=== PATIENT | female | born 1960 | race Caucasian/White ===

== ENCOUNTER 2023-08-25 07:27 | Observation (INO) ==
--- NOTE | 2023-08-08 15:52 | PAT Medication Instructions ---
Medication Instructions Date of Service August 08, 2023 Home Medications bupropion HCl 150 mg 24 hr tablet, extended release (Wellbutrin XL) 150 mg PO HS metoprolol tartrate 50 mg tablet (Lopressor) 50 mg PO BID triamterene 37.5 mg-hydrochlorothiazide 25 mg tablet (Maxzide-25mg) 1 tab PO QAM atorvastatin 40 mg tablet 40 mg PO HS acetaminophen 500 mg tablet (Pain Reliever (acetaminophen)) 1,000 mg PO Q8H PRN pantoprazole 40 mg tablet,delayed release 40 mg PO QAM DO NOT take the morning of surgery triamterene 37.5 mg-hydrochlorothiazide 25 mg tablet (Maxzide-25mg) 1 tab PO QAM Take morning of surgery With a small sip of water, OTHERWISE NOTHING TO EAT OR DRINK AFTER MIDNIGHT: metoprolol tartrate 50 mg tablet (Lopressor) 50 mg PO BID acetaminophen 500 mg tablet (Pain Reliever (acetaminophen)) 1,000 mg PO Q8H PRN (if needed) pantoprazole 40 mg tablet,delayed release 40 mg PO QAM Take evening before surgery bupropion HCl 150 mg 24 hr tablet, extended release (Wellbutrin XL) 150 mg PO HS metoprolol tartrate 50 mg tablet (Lopressor) 50 mg PO BID atorvastatin 40 mg tablet 40 mg PO HS acetaminophen 500 mg tablet (Pain Reliever (acetaminophen)) 1,000 mg PO Q8H PRN (if needed) Other Notes If you have any questions please call us at [phone] or [phone] or [phone] or [phone]
--- NOTE | 2023-08-17 09:09 | Anesthesiology Consultation ---
Date of Service August 17, 2023 Assessment & Plan (1) Encounter for pre-operative examination: - Infectious disease screening: Per assessment on 08/17/23: No known infectious disease contacts or current infectious disease symptoms. No noted Covid positive test result in past 90 days. - Outpatient joint assessment: Pt currently scheduled for inpatient pathway. If surgeon requests review for outpatient joint pathway, patient is an acceptable candidate for outpatient joint program from anesthesia standpoint pending surgeon's office assessment that patient is motivated, has good support and completes [facility] preop requirements. - S/P Right uni-knee arthroplasty (09/22/18): SAB at L3/4 + PNB at [facility] Chart Review Chart Review: Acceptable Risk for Surgery and Patient NOT seen in Pre Admission Testing History Surgery Operation Date: 08/25/23 09:10 Proposed Procedures p Left Total Knee Arthroplasty - Jimmy Finch MD Height/Weight Height: 5 ft 1 in Weight: 73.2 kg Allergies Allergy/AdvReac Type Severity Reaction Status Date / Time No Known Allergies Allergy Verified 08/05/23 14:31 Medications Home Medications Medication Instructions Recorded Confirmed Last Taken bupropion HCl 150 mg 24 hr tablet, 150 mg PO HS 08/21/18 08/05/23 09/21/18 20:00 extended release (Wellbutrin XL) metoprolol tartrate 50 mg tablet 50 mg PO BID 08/21/18 08/05/23 09/22/18 07:00 (Lopressor) triamterene 37.5 1 tab PO QAM 08/21/18 08/05/23 09/21/18 09:00 mg-hydrochlorothiazide 25 mg tablet (Maxzide-25mg) atorvastatin 40 mg tablet 40 mg PO HS 08/28/18 08/05/23 09/21/18 20:00 acetaminophen 500 mg tablet (Pain 1,000 mg PO Q8H PRN Pain 10/13/21 08/05/23 Unknown Reliever (acetaminophen)) pantoprazole 40 mg tablet,delayed 40 mg PO QAM 10/13/21 08/05/23 Unknown release Past Medical History Medical History Migraine Hx History of COVID-2019, not hospitalized Osteoarthritis High cholesterol Anxiety GERD (gastroesophageal reflux disease) Hypertension Exercise / Class Metabolic Activity II 4-5 Yardwork/Stairs/Walk up hill (one FS (no CP, no SOB)) Past Family History Family History Mother Family history of thyroid problem Past Surgical History Surgical History History of partial knee replacement Right uni-knee arthroplasty (09/22/18): SAB at L3/4 + PNB at [facility] History of cataract surgery R/L History of breast biopsy left History of tubal ligation History of meniscectomy of left knee Past Anesthesia History No Hx of Anesthesia Complications and No Family Hx of Anesthesia Complications History of PONV No Hx of PONV and No Hx of Motion Sickness Social History Smoking Status: Former smoker Do You Dip or Chew Tobacco: No Smoking End Date: Quit 3 years Hx Alcohol Use: Yes Alcohol type: hard liquor alcohol intake frequency: holidays/special occasions only Hx Substance Use: No substance use type: does not use Review of Systems Patient denies chest pain, shortness of breath, dyspnea on exertion, fever, chills, cough, wheezing, palpitations. Physical Exam Vital Signs VITALS BP 110/70 P 69 TEMP 98.1 SP02 98%RA RESP 18 PHYSICAL Full cervical extension range of motion. Full TMJ range of motion. TMD 3 finger breaths Mallampati Score 2 Dentition: Right upper molars "broken" Lungs: clear throughout to auscultation Cardiac: regular rate and rhythm, no murmurs noted Spine: normal Carotid arteries: negative bruit Extremities: no LE edema Lab Results Anesthesia Preop Results Results Anesthesia Widget: WBC 7.29 K/ul (4.8-10.8) 08/17/23 Hgb 14.4 g/dl (12.0-16.0) 08/17/23 Hct 42.9 % (37.0-47.0) 08/17/23 Plt 307 K/uL (130-400) 08/17/23 Na 138 mmol/L (136-145) 08/17/23 K 3.8 mmol/L (3.5-5.1) 08/17/23 Cl 103 mmol/L (98-107) 08/17/23 CO2 25 mmol/L (21-32) 08/17/23 BUN 18 mg/dl (6-23) 08/17/23 Creat 0.97 mg/dl (0.6-1.2) 08/17/23 Glucose Level 95 mg/dl (70-99(Fasting)) 08/17/23 PT 10.7 Seconds (9.0-12.0) 08/17/23 PTT 29.0 Seconds (21.0-31.0) 08/17/23 INR 1.0 (0.9-1.1) 08/17/23 Urine Color Yellow 08/17/23 Urine Appearance Clear (Clear) 08/17/23 Urine pH 6.5 (4.5-7.5) 08/17/23 Urine Specific [place] 1.013 (1.000-1.030) 08/17/23 Urine Protein Negative (Negative) 08/17/23 Urine Glucose (UA) Negative (Negative) 08/17/23 Urine Ketones Negative (Negative) 08/17/23 Urine Blood Negative (Negative) 08/17/23 Urine Nitrite Negative (Negative) 08/17/23 Urine Bilirubin Negative (Negative) 08/17/23 Urine Urobilinogen Negative (Negative) 08/17/23 Urine Leukocyte Esterase Negative (Negative) 08/17/23 Blood Type A Positive 08/17/23 Antibody Screen NEGATIVE 08/17/23 Testing Electrocardiogram Date: 08/17/23 NSR at 65bpm. "Normal ECG" Chest X-Ray Date: 11/17/22 FINDINGS: No pneumothorax. No pleural effusions. No focal lung consolidations to suggest a pneumonia. The cardiac silhouette is top normal in size. There are old, healed left-sided rib fractures. Small linear scarlike density within the lingula. This is best seen on the lateral view. There is an old, healed left humeral neck fracture. IMPRESSION: No acute process. Pulmonary Function Test Date: 12/14/22 Mild proportional reduction in both FEV1 and FVC with preserved ratio. No change after bronchodilators. No assessment of restriction on lung volumes and diffusion capacity mildly reduced. Nonspecific clinical pattern.
[~2023-08-25 07:27] MED LIST: ACETAMINOPHEN 500 MG TAB PO SCH; BUPIVACAINE 0.5 % 5 MG/1 ML PF 10ML VIAL ONE; BUPIVACAINE LIPOSOME/PF 266 MG, BUPIVACAINE/EPINEPHRINE 50 ML, SODIUM CHLORIDE 0.9% PF ... INFIL SCH; CeleBREX 200 MG CAP PO SCH; FAMOTIDINE 20 MG TAB PO SCH; LR 500ML BOLUS, THEN 15ML/HR IV SCH; LR 60ML/HR IV SCH; ROPIVACAINE 0.5% 5 MG/ML 30 ML VIAL ONE; Scopolamine 1 MG TDSY TD SCH; TRANEXAMIC ACID 1,000 MG **IV Intra-op IV SCH; TRANEXAMIC ACID 1,000 MG **IV Pre-op IV SCH; ceFAZolin 2000MG 2,000 MG/15 ML SYR IV SCH; dexAMETHasone 4 MG TAB PO SCH; traMADol HCL 50 MG TABLET PO SCH
[2023-08-25] MEDS ORDERED: PROPOFOL IV EMULSION 10 MG/ML 20 ML VIAL IV ONE ×2 (09:24→12:21)
[2023-08-25] MEDS ORDERED: MIDAZOLAM HCL 1 MG/ML 2ML VIAL ONE (09:24)
--- NOTE | 2023-08-25 09:52 | History & Physical Bridge Note ---
Date of Service August 25, 2023 History & Physical Bridge Note I have examined the patient, reviewed the History & Physical and in the interval since the performance of the History & Physical I have noted the following changes of clinical significance: no changes noted
[2023-08-25] MEDS ORDERED: ROPIVACAINE 0.5% HCL/PF 150 MG, BUPIVACAINE 0.75% MPF 20 ML, EPINEPHrine 0.15 MG, Ketor... INFIL SCH (10:45)
--- NOTE | 2023-08-25 12:29 | Operative Report ---
Post Operative Report Pre & Post Diagnosis Operation Date: 08/25/23 09:20 Pre-Op Diagnosis: Left Knee Degenerative Joint Disease Post-Op Diagnosis: Left Knee Degenerative Joint Disease I identified the patient and participated in the time-out.: Yes Procedure Operation Date: 08/25/23 09:20 Actual Procedures p Left Total Knee Arthroplasty(Left) - Jimmy Finch MD Surgeon Jimmy Finch MD [employer] Ulices Rosario MD, MICHAELLE Noland PA-C, and Arley Vargas MS2. Estimated Blood Loss 100 Findings Consistent with Post-Op Diagnosis Fluids 1100 cc of crystalloid Specimens Left knee bone and soft tissue contents. Anesthesia Type Spinal MAC Complications none Disposition Disposition: Recovery Room Indications 63-year-old female with left knee osteoarthritis refractory to conservative management. X-rays demonstrate joint space narrowing, marginal osteophyte formation, and subchondral sclerosis. I had a long discussion with her about the risks and benefits of surgery, alternatives to surgery, and expected outcomes. After reviewing all these she elected to proceed with surgery. All questions were answered. Informed consent was signed. Description of Procedure Patient was identified in the preoperative holding area where the surgical site, left knee, was marked. Spinal anesthetic was placed by anesthesia. Patient was brought back to the operating room, placed on the operating room table, and IV sedation was administered. A bump was placed underneath the ipsilateral hip. All bony prominences were padded. Perioperative antibiotics and tranexamic acid were administered. Exam under anesthesia was performed. This demonstrated patient to have range of motion arc from 5 to 100 degrees. She was stable to varus and valgus at 30 degrees. The surgical site was prepped and draped in the normal sterile fashion. Prior to incision a multidisciplinary timeout was called. All in the room were in agreement. We began by exsanguinating the limb with an Esmarch bandage. Tourniquet was inflated to 250 mmHg. A 14 cm long incision was made over the anterior aspect of the knee. I dissected through the subcutaneous tissues to the level of the fascia. Full-thickness flaps were raised above the fascia. A median parapatellar arthrotomy was made. Half the fat pad was excised. A medial release was performed with Bovie electrocautery on the proximal tibia. Synovitis in the knee and suprapatellar pouch was removed. The patella was then everted and held with 2 towel clips. The thickness of the patella was measured at 20 mm. Patellar resection was performed. Caliper showed the patella thickness now to be 12 mm. A size 35 trial was placed and had a great fit. The 3 drill holes were placed then the trial button was placed. The patellar thickness was now 21 mm which I was very happy with. The patellar trial was then removed, and the knee was flexed up. Retractors were placed to protect the MCL and LCL. Osteophytes were removed from the femoral condyles and intercondylar notch. The ACL and PCL were excised. Intramedullary drill guide was drilled into the femur. Distal femoral cutting guide was placed set at 5 degrees of valgus to resect 11 mm off the distal femur. Distal femoral resection was made without difficulty. The tibia was then exposed. The lateral meniscus was sharply excised. The tibial cutting jig was positioned in line with the tibial shaft in the coronal plane and with 3 degrees of posterior slope in the sagittal plane to resect 5 mm off the medial compartment. The jig was then pinned in position and the tibial cut was made. We then brought the knee into full extension. Lamina spreaders were placed. The medial meniscus was excised. The extension block was then placed for 5 mm thickness poly. This gave us full extension and excellent stability to varus and valgus stress. Next the extension block was removed, the knee was flexed up, collateral ligam ents were protected, and the epicondylar axis and Whitesides line were marked out on the distal femoral cut. Femoral sizing guide was placed. External rotation was set at 3 degrees so that the posterior cut would be parallel with the epicondylar axis and perpendicular with Whitesides line. The patient sized to a size 4 femur. 2 pins were then placed through the jig into the distal femur. The jig was removed and the appropriately sized 4-in-1 cutting jig was placed over the pins, then fixated to the bone using threaded, headed pins. We confirmed that we would not notch the femur with our anterior cut. Our 4 cuts were then made. The cutting jig was removed. The flexion block was then placed with the knee held at 90 degrees. There was excellent stability to varus and valgus at 90 degrees with no gapping medially or laterally. Next the box cutting jig was placed on the distal femur. The box cut was made and the femoral trial was impacted into position. Lug holes were drilled in the distal femur. We then reexposed the tibia. The tibia was sized to a 3 for a fixed-bearing component. The tibial tray with a 5 mm thickness polyethylene liner was placed on the cut tibial surface and the knee was brought through a full range of motion. There was excellent stability to varus valgus stress throughout a full range of motion, which was approximately 0-125 degrees. Bovie electrocautery was used to brannon the tibia at the site where the tibial tray rested in full extension. We then flexed up the knee, removed the polyethylene liner, and pinned the tibial tray into position to match the cautery brannon. The intramedullary drill followed by the keel punch were used to prepare the tibia. Next the trial components were removed. I then injected the posterior capsule and periosteum with the periarticular injection cocktail. The bone cuts were then irrigated and dried while the cement was mixed on the back table. The femoral component was cemented on first. Excess cement was removed. A lap sponge was placed over the femoral component for protection, then the tibia was subluxated anteriorly. The all polyethylene tibial component was then cemented in place. Again excess cement was removed. The knee was brought into full extension and held there until the cement cured. The patella was cemented and clamped. Dilute Betadine solution was then allowed to soak in the knee while the cement cured. Once the cement was fully cured, the knee was irrigated out, the tourniquet was let down and meticulous hemostasis was ensured. The knee was brought through a full range of motion. I was were very happy with the patella tracking and the stability. We then began to close. Interrupted 0 Vicryl suture was used to repair the patellar retinaculum in [id number] fashion. The quadriceps and patellar tendons were run with #1 Vicryl. The deep dermal layer was closed with interrupted 2-0 Vicryl. Dermabond and Zipline was used for the skin, followed by a Silverlon dressing. A compressive Jamie wrap was placed and the knee was placed into a knee immobilizer. Patient's sedation was lifted and was transferred to recovery room in stable condition. Summary of implants: Depuy Attune Posterior Stabilized Cemented Femur, size 4 left Attune All-polyethylene tibial component, posterior stabilized 5 mm thickness, size 3 Attune patella medialized dome, size 35 2 batches of simplex high viscosity bone cement Postoperative course: Patient will be admitted to the floor for pain control and monitoring. Weightbearing as tolerated with a walker with no knee range of motion for 48 hours. Aspirin for DVT prophylaxis. I attest to the content of the Intraoperative Record and any orders documented therein. Any exceptions are noted below.
[2023-08-25] MEDS ORDERED: HYDROmorphone INJ 0.5 MG/0.5 ML SYR IV PRN (12:34)
[2023-08-25] MEDS ORDERED: bisacodyL 10 MG SUPP PR PRN (12:34)
[2023-08-25] MEDS ORDERED: NALOXONE HCL 0.4 MG/1 ML VIAL/CARP IV PRN (12:34)
[2023-08-25] MEDS ORDERED: ALUMINUM/MAGNESIUM SUSP 30 ML UDC PO PRN (12:34)
[2023-08-25] MEDS ORDERED: diphenhydrAMINE 50 MG/ML VIAL IV PRN (12:34)
[2023-08-25] MEDS ORDERED: oxyCODONE HCL IR 5 MG TAB (IMMEDIATE RELEASE) PO PRN (12:34)
[2023-08-25] MEDS ORDERED: ONDANSETRON INJ 2 MG/ML 2 ML VIAL IV PRN (12:34)
[2023-08-25] MEDS ORDERED: METOCLOPRAMIDE HCL INJ 5 MG/ML 2 ML VIAL IV PRN (12:34)
[2023-08-25] MEDS ORDERED: MAGNESIUM HYDROXIDE SUSP 30 ML UDC PO PRN (12:34)
--- NOTE | 2023-08-25 12:34 | Operative Report ---
Post Operative Report Pre & Post Diagnosis Operation Date: 08/25/23 09:20 Pre-Op Diagnosis: Left Knee Degenerative Joint Disease Post-Op Diagnosis: Left Knee Degenerative Joint Disease I identified the patient and participated in the time-out.: Yes Procedure Operation Date: 08/25/23 09:20 Actual Procedures p Left Total Knee Arthroplasty(Left) - Jimmy Finch MD Surgeon Jimmy Finch MD Way Inspector Ulices Rosario MD, MICHAELLE Noland PA-C, and Arley Vargas MS2. Estimated Blood Loss 100 Findings Consistent with Post-Op Diagnosis Specimens knee bone and soft tissue Description of Procedure I was present during the entire case assisting with positioning, prepping, draping, wound retraction, wound closure, dressing and immobilizer placement. Fellow also present. I served as an extra set of hands during the case. Please see Dr. Finch procedure note for specifics. I attest to the content of the Intraoperative Record and any orders documented therein. Any exceptions are noted below.
[2023-08-25] MEDS ORDERED: ACETAMINOPHEN 500 MG TAB PO PRN (12:38)
--- NOTE | 2023-08-25 12:52 | Operative Report ---
Post Operative Report Pre & Post Diagnosis Operation Date: 08/25/23 09:20 Pre-Op Diagnosis: Left Knee Degenerative Joint Disease Post-Op Diagnosis: Left Knee Degenerative Joint Disease I identified the patient and participated in the time-out.: Yes Procedure Operation Date: 08/25/23 09:20 Actual Procedures p Left Total Knee Arthroplasty(Left) - Jimmy Finch MD Surgeon Jimmy Finch MD Global Safety Officer Ulices Rosario MD, MICHAELLE Noland PA-C, and Arley Vargas MS2. Estimated Blood Loss 100 Findings Consistent with Post-Op Diagnosis Same as postoperative diagnosis. Specimens None Description of Procedure Please see detailed operative note. I attest to the content of the Intraoperative Record and any orders documented therein. Any exceptions are noted below.
--- NOTE | 2023-08-25 13:22 | XRay Report ---
XR knee LT 1 or 2V routine CLINICAL HISTORY: Postoperative evaluation. COMPARISON: Left knee radiographs August 17, 2023. FINDINGS: Alignment of the total left knee arthroplasty is anatomic. There is no periprosthetic frac ture or unexpected radiopaque foreign body. Polyethylene tibial component is present. IMPRESSION: Expected findings following total left knee arthroplasty. ACT 112: Negative or not required by law. Electronically signed by: Martin Zamarripa M.D. 08/25/2023 1:21 PM
[2023-08-25] MEDS: SODIUM CHLORIDE 0.9% 1,000 ML IV SCH (14:26)
--- NOTE | 2023-08-25 14:35 | Anesthesiology Progress Note ---
Date of Service August 25, 2023 Anesthesia Post Procedure Vital Signs Vital Signs: Temp Pulse Resp BP Pulse Ox O2 Del Method O2 Flow Rate 08/25/23 14:30 36.8 C 85 16 100/64 98 Room Air 08/25/23 13:58 36.6 C 81 16 107/69 98 Room Air 08/25/23 13:30 36.4 C L 77 20 113/56 L 97 Room Air 08/25/23 13:20 79 20 106/59 L 98 Room Air 08/25/23 13:10 36.2 C L 75 22 112/59 L 98 Room Air 08/25/23 13:00 67 18 103/48 L 97 Room Air 08/25/23 12:50 74 15 114/46 L 97 Room Air 08/25/23 12:40 71 14 95/51 L 100 Room Air 08/25/23 12:32 36.5 C 74 20 93/54 L 100 Oxymask 6 08/25/23 08:36 37.1 C 71 20 123/74 98 Room Air Transfer of Care Handoff Completed per policy Notes Mental Status: alert / awake / arousable and participated in evaluation Nausea / Vomiting: adequately controlled Pain: adequately controlled Airway Patency, RR, SpO2: stable & adequate BP & HR: stable & adequate Hydration State: stable & adequate Neuraxial Anesthesia: was administered and sensory block is resolving Anesthetic Complications: no major complications apparent and Pt Satisfied with anesthetic care
[2023-08-25] MEDS: ACETAMINOPHEN 500 MG TAB PO SCH ×2 (16:25→20:58)
[2023-08-25] MEDS: Scopolamine CHECK PATCH PLACEMENT SCH (16:26)
[2023-08-25] MEDS: KETOROLAC TROMETHAMINE 15 MG/ML VIAL IV SCH ×2 (16:26→20:58)
[2023-08-25] MEDS: ceFAZolin 2000MG 2,000 MG/15 ML SYR IV SCH (18:18)
[2023-08-25] MEDS ORDERED: TRANEXAMIC ACID / 0.7% NACL 1,000 MG/100 ML BAG IV SCH (19:00)
[2023-08-25] MEDS: METOPROLOL TARTRATE 50 MG TAB PO SCH (20:54)
[2023-08-25] MEDS: DOCUSATE SODIUM 100 MG CAP PO SCH (20:54)
[2023-08-25] MEDS ORDERED: buPROPion XL 150 MG TABCR PO SCH (21:00)
[2023-08-25] MEDS ORDERED: ATORVASTATIN 40 MG TAB PO SCH (21:00)
[2023-08-25] MEDS ORDERED: SENNA 8.6 MG TAB PO SCH (21:00)
[2023-08-25] MEDS ORDERED: CeleBREX 200 MG CAP PO SCH (21:00)
[2023-08-26] MEDS: KETOROLAC TROMETHAMINE 15 MG/ML VIAL IV SCH ×2 (02:45→08:44)
[2023-08-26] MEDS: ceFAZolin 2000MG 2,000 MG/15 ML SYR IV SCH (02:46)
[2023-08-26] MEDS: Scopolamine CHECK PATCH PLACEMENT SCH ×2 (02:46→08:46)
[2023-08-26] MEDS: SODIUM CHLORIDE 0.9% 1,000 ML IV SCH (05:36)
[2023-08-26] MEDS: ACETAMINOPHEN 500 MG TAB PO SCH (06:04)
[2023-08-26] MEDS ORDERED: dexAMETHasone 4 MG TAB PO SCH (08:00)
[2023-08-26 08:13] LABS: Hematocrit (blood only) 34.1 % (37.0-47.0); Hemoglobin 11.4 g/dl (12.0-16.0); Mean Corpuscular Hemoglobin 29.8 pg (25.0-34.0); Mean Corpuscular Hgb Conc 33.4 g/dL (32.0-36.0); Mean Corpuscular Volume 89.3 fL (80.0-100.0); Mean Platelet Volume 9.6 fL (9.4-12.4); Platelet Count 257 K/uL (130-400); RDW Coefficient of Variation 12.9 % (11.5-14.5); RDW Standard Deviation 42.1 fL (36.4-46.3); Red Blood Count 3.82 M/uL (4.20-5.40); White Blood Count 17.14 K/ul (4.8-10.8)
[2023-08-26 08:32] LABS: BUN Creatinine Ratio 13.9 (10-20); Calcium 8.4 mg/dl (8.6-10.3); Creatinine Clr Calc Pharmacy 33.9 ml/min; Est GFR (African American) 40.2 ml/min; Est GFR (Non-African American) 34.7 ml/min; Potassium 3.4 mmol/L (3.5-5.1)
[2023-08-26] MEDS: METOPROLOL TARTRATE 50 MG TAB PO SCH (08:43)
[2023-08-26] MEDS: DOCUSATE SODIUM 100 MG CAP PO SCH (08:44)
--- NOTE | 2023-08-26 08:48 | Orthopedic Progress Note ---
Date of Service August 26, 2023 Assessment & Plan (1) Status post total left knee replacement: Plan: PT/OT Weightbearing as tolerated with walker assistance and immobilizer for the first 48 hours Pain control with p.o. medication Ice with easy wrap DVT prophylaxis with aspirin and DAVID stockings Keep Silverlon dressing in place Plan is to discharge home later this morning with in-home physical therapy for the first 2 weeks Follow-up at [facility] orthopedics as previously scheduled With questions contact our clinic at [phone] Admission and Anticipated Discharge Date Admission Date: August 25, 2023 Subjective This 63-year-old female is day 1 status post left total knee arthroplasty. She states she is doing very well. She states her pain is well controlled with p.o. pain medication. Patient states that she still has some numb sensation over the dorsum of the foot and anterior aspect of her lower leg but has complete motor function. She states she has been able to get up and use the restroom with the assistance of her walker. Patient denies chest pain, shortness of breath, fever, chills, sweats, lethargy, nausea, vomiting, diarrhea or difficulty voiding. Review of Systems Review of Systems: All systems reviewed & are unremarkable except as noted in Subjective Physical Exam Physical Exam: Left knee: Outer dressing was removed. Silverlon is clean dry and intact and left in place. Patient does have some mild edema and ecchymosis noted over the medial and lateral aspect of the knee. She is able to to easily perform an active straight leg raise test. Her quad strength is 4+ out of 5. She is able to actively dorsi and plantarflex her foot without issue. Active knee range of motion is from 0 degrees of extension to 80 degrees of flexion. She is able to detect light sensation to touch over the pads of all digits and dorsum of her foot. Her peripheral pulses are 2+. Her capillary was not able to be detected due to nail cymro. She is neurovascularly intact in the left lower extremity. Results & Data Vital Signs (Past 12 Hours) Vital Signs Temp Pulse Resp BP Pulse Ox O2 Del Method 08/26/23 07:34 36.6 C 67 18 117/70 99 Room Air 08/26/23 03:06 36.6 C 77 18 134/65 99 Room Air 08/25/23 23:00 36.7 C 90 18 117/70 95 Room Air Diagnostic Findings Laboratory Results WBC 17.14 K/ul (4.8-10.8) H 08/26/23 07:28 RBC 3.82 M/uL (4.20-5.40) L 08/26/23 07:28 Hgb 11.4 g/dl (12.0-16.0) L 08/26/23 07:28 Hct 34.1 % (37.0-47.0) L 08/26/23 07:28 MCV 89.3 fL (80.0-100.0) 08/26/23 07:28 MCH 29.8 pg (25.0-34.0) 08/26/23 07:28 MCHC 33.4 g/dL (32.0-36.0) 08/26/23 07:28 RDW Std Deviation 42.1 fL (36.4-46.3) 08/26/23 07:28 RDW Coeff of Shanta 12.9 % (11.5-14.5) 08/26/23 07:28 Plt Count 257 K/uL (130-400) 08/26/23 07:28 MPV 9.6 fL (9.4-12.4) 08/26/23 07:28 Sodium 137 mmol/L (136-145) 08/26/23 07:28 Potassium 3.4 mmol/L (3.5-5.1) L 08/26/23 07:28 Chloride 106 mmol/L (98-107) 08/26/23 07:28 Carbon Dioxide 21 mmol/L (21-32) 08/26/23 07:28 Anion Gap 10 (3-11) 08/26/23 07:28 BUN 22 mg/dl (6-23) 08/26/23 07:28 Creatinine 1.58 mg/dl (0.6-1.2) H 08/26/23 07:28 Est Cr Clr Drug Dosing 33.9 ml/min 08/26/23 07:28 Est GFR ( Amer) 40.2 ml/min 08/26/23 07:28 Est GFR (Non-Af Amer) 34.7 ml/min 08/26/23 07:28 BUN/Creatinine Ratio 13.9 (10-20) 08/26/23 07:28 Glucose 149 mg/dl (70-99(Fasting)) H 08/26/23 07:28 Calcium 8.4 mg/dl (8.6-10.3) L 08/26/23 07:28 Impressions Knee X-Ray 08/25/23 12:34 XR knee LT 1 or 2V routine CLINICAL HISTORY: Postoperative evaluation. COMPARISON: Left knee radiographs August 17, 2023. FINDINGS: Alignment of the total left knee arthroplasty is anatomic. There is no periprosthetic fracture or unexpected radiopaque foreign body. Polyethylene tibial component is present. IMPRESSION: Expected findings following total left knee arthroplasty. ACT 112: Negative or not required by law. Electronically signed by: Martin Zamarripa M.D. 08/25/2023 1:21 PM
--- NOTE | 2023-08-26 08:55 | Discharge Summary ---
Date of Service August 26, 2023 Admission HPI Per Admitting Provider Karina is a 61-year-old female here today for preoperative history and physical prior to undergoing a left total knee arthroplasty with Dr. Finch. She has had about 10 cortisone injections as well as DECKER injections. Patient has had severe pain in her left knee. She has had a partial right knee arthroplasty w [facility]OC and a history of neuropathy. Her left knee pain is located on the medial side that she describes as burning. Patient's pain radiates to the back of her knee and keeps her up at night. She takes Tramadol occasionally as well as IcyHot and Ibuprofen. Patient has significant swelling especially after activity. She had a meniscus surgery done on her left knee about 3 years ago. Patient has not recently had a cortisone injection. She has no history of blood clotting, MRSA, allergy to latex or rubber gloves and is not currently on any blood thinners. Admission Exam Per Admitting Provider Physical Exam Vitals & Measurements T: 36.4 C HR: 70 (Monitored) BP: 130/78 SpO2: 97% General: Pt is well nourished, seated on the exam table AA&O, in NAD, calm and cooperative during exam HENT: Nontraumatic, no gross deformity, hearing and vision grossly in-tact, PERRL Heart: +S1, +S2, RRR, no murmurs appreciated Lungs: CTABL, no wheezing appreciated Focusing on the patient's left lower extremity: Sensation intact to light touch L3 to S1 dermatomes. ROM: 2 to 110 + Medial > lateral joint line tenderness + Tenderness over lateral and medial facet of patella Ligament exam: - Posterior drawer Stable to Varus and Valgus stress at 0 and 30. Well healed arthroscopic portal incisions Principal Diagnosis Left knee osteoarthritis Discharge Exam Left knee: Outer dressing was removed. Silverlon is clean dry and intact and left in place. Patient does have some mild edema and ecchymosis noted over the medial and lateral aspect of the knee. She is able to to easily perform an active straight leg raise test. Her quad strength is 4+ out of 5. She is able to actively dorsi and plantarflex her foot without issue. Active knee range of motion is from 0 degrees of extension to 80 degrees of flexion. She is able to detect light sensation to touch over the pads of all digits and dorsum of her foot. Her peripheral pulses are 2+. Her capillary was not able to be detected due to nail vietnamese. She is neurovascularly intact in the left lower extremity. Discharge Data Allergies Allergy/AdvReac Type Severity Reaction Status Date / Time No Known Allergies Allergy Verified 08/25/23 07:57 Procedures Performed Operation Date: 08/25/23 09:20 Actual Procedures p Left Total Knee Arthroplasty(Left) - Jimmy Finch MD Ordered Studies 08/25/23 05:00 US - OR guided needle placemen Routine Hospital Course (1) Status post total left knee replacement: Patient had an uneventful overnight stay following left total knee arthroplasty. She is very pleased with the results of the surgery. She is anxious to be discharged home later today. If she has questions or concerns that should arise, she will contact our clinic. Plan is to discharge home today with in- home physical therapy for the first 2 weeks before she transitions to outpatient physical therapy in our PT clinic. PT/OT Weightbearing as tolerated with walker assistance and immobilizer for the first 48 hours Pain control with p.o. medication Ice with easy wrap DVT prophylaxis with aspirin and DAVID stockings Keep Silverlon dressing in place Plan is to discharge home later this morning with in-home physical therapy for the first 2 weeks Follow-up at [facility] orthopedics as previously scheduled With questions contact our clinic at [phone] Total Time Total Time Spent Total Time Spent (In Minutes): 20 mins Discharge Plan Discharge Items Patient Disposition: Home - Home Health Services Reason For Visit: Left Knee Osteoarthritis Discharge Diagnosis: Left Knee Osteoarthritis Activity: As commented below Lifting: None Bathing: Keep incision dry Bathing Comment: May shower tomorrow Sexual Activity: Wait until after follow-up appointment Exercise/Sports: Wait until after follow-up appointment Weightbearing Comment: as tolerated with walker and immobilizer for first 48 hrs Non-emergency contact: Surgeon Call non-emergency contact if: you have any medication questions, your pain is not controlled, your temperature is above 101.5, your wound has increased drainage and your wound pain has increased Follow-up/Referrals: Katarina Lilly PA-C [Primary Care Provider] - Diet: Regular Addtl Attending Provider Instructions: Post-operative Instructions Dear Patient and Family/Friends, Before you are discharged from the hospital, it is important to know what to expect when you get home after surgery. To that end, we have created this sheet of discharge instructions which covers many commonly asked questions. Make sure you go through this sheet in its entirety with your nurse before you are discharged. Please note that we will go over the specifics of your surgery and recovery when you return for your first post-operative visit. Sincerely, Dr. Finch Medications 1. Oxycodone 5 mg tablet: Take 1-2 tabs every 4-6 hours as needed for postoperative pain control. A prescription for this medication will be sent to your pharmacy. 2. Diclofenac sodium 75 mg tablet: Take 1 tab twice daily for the first 30 days postoperatively for pain and inflammation relief. This will be sent to your pharmacy with 1 additional refill. 3. Aspirin 81 mg tablet: Take 1 tab twice daily for the first 30 days postoperatively for blood clot prevention. Please purchase this medication. 4. Extra strength Tylenol 500 mg tablet: Take 2 tabs every 6-8 hours as needed for additional pain relief. Please purchase this medication. Pain Expect to be in a fair amount of pain after surgery. Remember, our goal is not to eliminate your pain, but to make it tolerable. It is a good idea to stay ahead of your pain by taking the medications you were prescribed once you get home. Typically, the pain starts improving 3-7 days after surgery. You should start weaning off the narcotic pain medication (oxycodone, hydrocodone, hydromorphone, morphine) as soon as your pain improves. Please call our office if your pain is not adequately controlled. Ice Ice your operative site at least 5 times a day for 15-30 minutes at a time. Make sure you have a thin cloth between the ice or cooling unit and your skin to prevent shell bite. This is especially important if you received a nerve block. Continue icing your operative site for the first 5-7 days after surgery, then as needed. Diet/Nausea/Vomiting Start by drinking clear liquids and eating crackers. If you can tolerate this, then you may resume your normal diet. If you feel nauseated or vomit, take Zofran/ondansetron (if prescribed). Please call our office if you have intractable nausea or vomiting, or, if after hours, you may go to the Emergency Room for help. Constipation Constipation is a common side effect of narcotic pain medication. If you have not had a bowel movement within 2 days after surgery, we recommend purchasing an over the counter laxative such as Milk of Magnesia, Dulcolax, or Miralax from a local pharmacy, and taking it as instructed. Call our clinic if any questions. Slings and Braces If you were placed in a sling or brace, it must be worn at all times, including sleep. You may remove your sling or brace for physical therapy, home exercises, and showering. The length of time you will be in your brace and range of motion restrictions depends on what surgery you had; these details will be reviewed at your first post-operative appointment. Nerve block The anesthesia team sometimes places a nerve block to help with post-operative pain control. This results in significant numbness and inability to move the extremity. The nerve block usually wears off in 8-12 hours, but sometimes can last up to 24 hours. Please call our office if you are still unable to move your extremity after 24 hours, unless you received a pain pump to take home. Nerve blocks typically wear off quickly, so start taking pain medication as soon as you start feeling soreness near your surgical site. Weight bearing and Range of Motion. Do not bear any weight through your operative extremity immediately after surgery. If you had upper extremity surgery, do not lift anything with that arm. If you are in a knee brace, keep it locked in place until your follow-up. We will discuss your weight bearing, range of motion, and lifting restrictions in detail at your first post-operative appointment. Continuous Passive Motion (CPM) Machine If you were prescribed a CPM machine, it will start after your first post- operative appointment, at which time we will give you instructions on the range of motion settings and duration of treatment Physical therapy You will be given a prescription for physical therapy or occupational therapy at your first post-operative appointment. Typically, patients start therapy within 1 week of surgery Wound care and showering We will inspect your wound at your first post-operative visit, and may do a dressing change at that time. Most patients will be in a water-proof dressing th at is removed 14 days after surgery. It is normal to see some dried blood on the dressing. Do not remove your dressing, paper strips or sutures yourself unless you are given permission. Showering is allowed the day after surgery. Do not scrub or remove any dressings. The wound should not be submerged underwater (i.e. in a bathtub or pool) until 4 weeks after surgery DAVID stockings If you were given white stockings, these are to be worn at all times except to shower (on both legs) for the first 2 weeks after surgery. Driving You may not drive while taking narcotic pain medication or while in a cast, splint, sling or brace. You, the patient, need to make the final determination about when you are safe to drive, however, the earliest you may consider driving after surgery is below: Hand/Wrist/Elbow Surgery: 3 days Shoulder Surgery: 2 weeks Hip,/Knee/Ankle Surgery: 4 weeks Fracture repair: 6 weeks Return to Work Your return to work depends on what surgery was done and what type of work you do. Please bring any paperwork your employer needs completed to your first post-operative visit. Also, bring a description of your job duties, as this helps us to understand what risks you may face at work. Travel Avoid long distance travel (greater than 1 hour) in airplanes and cars for the first 6 weeks after surgery. If you must travel, you need to have a Doppler ultrasound done before you travel to rule out a blood clot in your legs. Follow-up You should have a follow-up appointment already scheduled 1-2 days after surgery. If not, please contact our office to make this appointment before you leave the hospital. When to call the office It is normal to have swelling and bruising in the limb that was operated on. This will improve with time. It is also normal to have fevers for the first 2 days after surgery. Reasons you should call your doctor include: Uncontrolled pain; Nausea, vomiting, or constipation that does not improve with medication; Fevers over 101.5, chills, sweats; Drainage or bleeding from the wound; Foul odor; Spreading areas of redness; Any other concerns Pending Studies at Discharge: No Stand-Alone Forms: My [facility] Medications and DC Order Prescriptions: New aspirin 81 mg Tablet,Delayed Release (Dr/Ec) 81 mg PO BID 30 Days Qty: 60 0RF oxycodone 5 mg Tablet 5 - 10 mg PO Q4H MDD Ongoing treatment PRN (Reason: Postoperative pain control) Qty: 28 0RF diclofenac sodium 75 mg tablet,delayed release (DR/EC) 75 mg PO BID 30 Days Qty: 60 1RF Continued metoprolol tartrate [Lopressor] 50 mg Tablet 50 mg PO BID triamterene-hydrochlorothiazid [Maxzide-25mg] 37.5-25 mg Tablet 1 tab PO QAM bupropion HCl [Wellbutrin XL] 150 mg Tablet Extended Release 24 Hr 150 mg PO HS atorvastatin 40 mg Tablet 40 mg PO HS acetaminophen [Pain Reliever (acetaminophen)] 500 mg tablet 1,000 mg PO Q8H PRN (Reason: Pain) pantoprazole 40 mg Tablet,Delayed Release (Dr/Ec) 40 mg PO QAM celecoxib 200 mg capsule Admission Data Admit Date/Time: 08/25/23 12:34 Attending Provider: Jimmy Finch Admit Provider: Jimmy Finch Primary Care Provider: Katarina Lilly Other Providers: [facility]
[2023-08-26] MEDS ORDERED: MULTIVITAMIN TAB PO SCH (09:00)
[2023-08-26] MEDS ORDERED: TRIAMTERENE/HCTZ 37.5/25MG TAB PO SCH (09:00)
[2023-08-26] MEDS ORDERED: PANTOprazole 40 MG TAB PO SCH (09:00)
[2023-08-26] MEDS ORDERED: ASPIRIN 81 MG ECTAB PO SCH (09:00)
--- OUTSIDE RECORDS SUMMARY | 2023-08-27 01:50 | External Medical Summary | Continuity of Care Document ---
Author Name Unknown Organization [facility] [id number] [address] [place] [phone] Care Team Providers Care Dial Buffer Name Role Phone MaxxKatarina Primary Care Physician [phone] Encounter [facility] [id number] Date(s): 08/19/23 - 08/19/23 [facility] [address] [address] [phone] Encounter Diagnosis Body mass index [BMI] 31.0-31.9, adult(Discharge Diagnosis) - 08/19/23 Left knee DJD(Discharge Diagnosis) - 08/19/23 Malignant melanoma of right upper extremity(Discharge Diagnosis) - 08/19/23 HTN, goal below 140/90(Discharge Diagnosis) - 08/19/23 Hyperlipidemia with target LDL less than 130(Discharge Diagnosis) - 08/19/23 Preoperative examination(Discharge Diagnosis) - 08/19/23 Discharge Disposition: Home or Self Care Attending Physician: DO Garzon Gretchen Elizabeth Referring Physician: MD Stef, Jimmy Mendiola Allergies, Adverse Reactions, Alerts No Known Medication Allergies Immunizations Given and Recorded Vaccine Date Status Refusal Reason diphtheria/tetanus/pertuss, acel (DTaP) 1 02/11/23 Recorded 1Result Comment: Boostrix Medications Albuterol (Eqv-ProAir HFA) 90 mcg/inh inhalation aerosol Start: 06/17/22 15:04:00 EDT, 2 puff, inhaled, qid, Disp# 1 each, Refills: 3, PRN: shortness of breath, Pharmacy: [id number] Start Date: 06/17/22 Stop Date: 10/15/22 Status: Ordered amoxicillin 500 mg oral capsule Start: 04/28/23 15:30:00 EDT, 4 cap, PO, As indicated, Disp# 12 cap, Refills: 3, one hour before dental and other procedures as directed, Pharmacy: [facility] [id number] Start Date: 04/28/23 Status: Ordered atorvastatin 40 mg oral tablet Start: 03/08/23 12:06:00 EDT, 1 tab, PO, Daily, Disp# 90 tab, Refills: 3, Pharmacy: [facility] 2[address] Start Date: 03/08/23 Stop Date: 03/02/24 Status: Ordered buPROPion 150 mg/24 hours (XL) oral tablet, extended release Start: 02/24/23 10:42:00 EDT, See Instructions, Disp# 30 tab, Refills: 5, Take 1 tablet by mouth once daily, Pharmacy: [facility] 2[facility] Start Date: 02/24/23 Status: Ordered hydroCHLOROthiazide-triamterene 25 mg-37.5 mg oral tablet Start: 07/21/23 14:31:00 EDT, 1 tab, PO, Daily, Disp# 30 tab, Refills: 3, Pharmacy: [facility] 2[facility] Start Date: 07/21/23 Status: Ordered losartan 25 mg oral tablet Start: 03/01/23 10:31:00 EDT, See Instructions, Disp# 30 tab, Refills: 5, Take 1 tablet by mouth once daily, Pharmacy: [facility] 2[address] Start Date: 03/01/23 Status: Ordered Metoprolol Tartrate 50 mg oral tablet Start: 02/24/23 10:42:00 EDT, See Instructions, Disp# 60 tab, Refills: 3, Take 1 tablet by mouth twice daily, Pharmacy: [facility] [address] Start Date: 02/24/23 Status: Ordered pantoprazole 40 mg oral delayed release tablet Start: 08/08/23 16:04:00 EDT, 1 tab, PO, Daily, Disp# 30 tab, Refills: 5, Pharmacy: [facility] [address] Start Date: 08/08/23 Stop Date: 02/04/24 Status: Ordered Tessalon Perles 100 mg oral capsule Start: 01/07/23 10:37:00 EDT, 1 cap, PO, q8h, Disp# 60 cap, Pharmacy: [facility] [address] Start Date: 01/07/23 Status: Ordered traMADol 50 mg oral tablet Start: 08/09/23 8:34:00 EDT, 1 tab, PO, q4h, Disp# 28 tab, Refills: 0, Pain control Ongoing treatment Rx, PRN: as needed for pain, Pharmacy: [facility] Start Date: 08/09/23 Status: Ordered triamcinolone 0.1% topical cream Start: 07/06/22 9:04:00 EDT, 1 appl, topical, tid, Disp# 15 g, Refills: 0, Pharmacy: [facility] Start Date: 07/06/22 Status: Ordered Mental Status 08/19/23 Barriers to Learning one year None evide nt Mandatory Health Literacy Documentation Yes Health Literacy Communication Barriers N ever Primary Language Kuwaiti Problem List Condition Confirmation Course Effective Dates Status H ealth Status Informant Adjustment disorder with depressed mood Confirmed Active GERD without esophagitis Confirmed Active History of partial knee replacement Confirmed Active Hyperlipidemia with target LDL less than 130 Confirmed Active HTN, goal below 140/90 Confirmed Active Malignant melanoma of right upper extremity Confirmed Active Left knee DJD Confirmed Active Colon polyps Confirmed Active Diagnosis Diagnosis Type Effective Dates Health Status Clinical Service Informant Body mass index [BMI] 31.0-31.9, adult Discharge Diagnosis 08/19/23 Non-Specified Left knee DJD Discharge Diagnosis 08/19/23 Malignant melanoma of right upper extremity Discharge Diagnosis 08/19/23 Hyperlipidemia with target LDL less than 130 Discharge Diagnosis 08/19/23 HTN, goal below 140/90 Discharge Diagnosis 08/19/23 Preoperative examination Discharge Diagnosis 08/19/23 Procedures Procedure Date Related Diagnosis Body Site Status Chest X-ray 1 11/17/22 Completed Ultrasound scan of thyroid 2 11/16/22 Completed Diagnostic mammogram 3 06/02/22 Co mpleted Wrist X-ray 4 05/02/21 Completed Knee X-ray 5 01/23/18 Completed Mammogram 6 01/17/17 Completed Ultrasound Breast Left 7 08/01/15 Completed Tubal ligation Completed 1Impression: No acute process 2Impression: A 17 X 14 x 13 mm solid cystic left thyroid nodule. This does not meet sonographic criteria for biopsy at this time. Therefore, a follow up ultrasound recommended to ensure stability. 3ACR BI-RADS CATEGORY 2: BENIGN, ULTRASOUND ACR BI-RADS CATEGORY 2: BENIGN 1. No mammographic evidence of malignancy in the breasts. Stable postbiopsy changes in the 12:00 left breast. 2. There is an encapsulated fatty mass measuring at least 10.4 cm in the area of palpable concern in the 12:00 far posterior and peripheral left breast extending into the infraclavicular region, thatmost likely represents a benign lipoma. Although this is considered benign based on imaging appearance, if the patient desires removal, surgical consultation for surgical excision would be useful. 3. Also recommend continuing annual screening mammogram schedule, next due May 2023. 4Impression: Stable alignment of left proximal humerus fracture. No additional acute findings. 5Impression: Mild osteoarthritis bilateral knees, rigth greater than left. This is mildy progressed on the right. 6Impression: Benign findings 7Impression: Benign finding explains palpable abnormality. Continued clinical follow up of this finding is recommended. Vital Signs Most recent to oldest [Reference Range]: 1 Height 154 cm (08/19/23 10:55 AM) Patient Weight 73.8 kg (08/19/23 10:55 AM) Body Mass Index 31.12 kg/m2 (08/19/23 10:55 AM) Temperature [36.5-37.9 DegC] 36.9 DegC (08/19/23 10:55 AM) Heart Rate 69 bpm (08/19/23 10:55 AM) Blood Pressure 126/72mmHg (08/19/23 10:55 AM) Cuff Pulse Pressure 54 mmHg (08/19/23 10:55 AM) BP Location # 1 Left Arm (08/19/23 10:55 AM) Social History Social History Type Response Tobacco Former smoker, Smoke less tobacco use: Former smokeless tobacco user, quit more than 1 year ago. Cigarettes Smoking Status Never smoked cigaret conrado Sex Patient Care team information Care Team Personnel Name: BEKAH Lilly Kimberly A Position: Physician Digital Hardware Design Engineer - Family Med Member Role: Primary Care Provider Address: Address: [address] [address] Name: LYDIA Rose, Tiff Position: Meter Shop Superintendent Member Role: Meter Shop Superintendent Address: Address: [facility] [address] DAVID Patel [phone] [place] Care Team Related Persons Name: ALEXIS FLYNN Address: home [address] [place], [place] [address]DAVID [phone]
--- OUTSIDE RECORDS SUMMARY | 2023-08-27 01:50 | External Medical Summary | Continuity of Care Document ---
Author Name Unknown Organization [place] [id number] Address [address] [place] [id number] Care Team Providers Care Couture Dressmaker Name Role Phone Katarina Lilly Primary Care Physician [phone] Encounter [facility] [id number] Date(s): 08/17/23 - 08/17/23 [facility] [address] [place] [id number] [facility] [address] [address] Encounter Diagnosis Left knee DJD(Discharge Diagnosis) - 08/17/23 Discharge Disposition: Home or Self Care Attending Physician: BEKAH Rangel, Anni Referring Physician: MD Stef, Jimmy Mendiola Allergies, Adverse Reactions, Alerts No Known Medication Allergies Immunizations Given and Recorded Vaccine Date Status Refusal Reason diphtheria/tetanus/pertuss, acel (DTaP) 1 02/11/23 Recorded 1Result Comment: Boostrix Medications Albuterol (Eqv-ProAir HFA) 90 mcg/inh inhalation aerosol Start: 06/17/22 15:04:00 EDT, 2 puff, inhaled, qid, Disp# 1 each, Refills: 3, PRN: shortness of breath, Pharmacy: [id number] Start Date: 06/17/22 Stop Date: 10/15/22 Status: Ordered amoxicillin 500 mg oral capsule Start: 04/28/23 15:30:00 EDT, 4 cap, PO, As indicated, Disp# 12 cap, Refills: 3, one hour before dental and other procedures as directed, Pharmacy: [id number] Start Date: 04/28/23 Status: Ordered atorvastatin 40 mg oral tablet Start: 03/08/23 12:06:00 EDT, 1 tab, PO, Daily, Disp# 90 tab, Refills: 3, Pharmacy: [facility] Start Date: 03/08/23 Stop Date: 03/02/24 Status: Ordered buPROPion 150 mg/24 hours (XL) oral tablet, extended release Start: 02/24/23 10:42:00 EDT, See Instructions, Disp# 30 tab, Refills: 5, Take 1 tablet by mouth once daily, Pharmacy: [facility] Start Date: 02/24/23 Status: Ordered hydroCHLOROthiazide-triamterene 25 mg-37.5 mg oral tablet Start: 07/21/23 14:31:00 EDT, 1 tab, PO, Daily, Disp# 30 tab, Refills: 3, Pharmacy: [facility] Start Date: 07/21/23 Status: Ordered losartan 25 mg oral tablet Start: 03/01/23 10:31:00 EDT, See Instructions, Disp# 30 tab, Refills: 5, Take 1 tablet by mouth once daily, Pharmacy: [facility] Start Date: 03/01/23 Status: Ordered Metoprolol Tartrate 50 mg oral tablet Start: 02/24/23 10:42:00 EDT, See Instructions, Disp# 60 tab, Refills: 3, Take 1 tablet by mouth twice daily, Pharmacy: [facility] Start Date: 02/24/23 Status: Ordered pantoprazole 40 mg oral delayed release tablet Start: 08/08/23 16:04:00 EDT, 1 tab, PO, Daily, Disp# 30 tab, Refills: 5, Pharmacy: [facility] Start Date: 08/08/23 Stop Date: 02/04/24 Status: Ordered Tessalon Perles 100 mg oral capsule Start: 01/07/23 10:37:00 EDT, 1 cap, PO, q8h, Disp# 60 cap, Pharmacy: [facility] Start Date: 01/07/23 Status: Ordered traMADol 50 mg oral tablet Start: 08/09/23 8:34:00 EDT, 1 tab, PO, q4h, Disp# 28 tab, Refills: 0, Pain control Ongoing treatment Rx, PRN: as needed for pain, Pharmacy: [facility] Start Date: 08/09/23 Status: Ordered triamcinolone 0.1% topical cream Start: 07/06/22 9:04:00 EDT, 1 appl, topical, tid, Disp# 15 g, Refills: 0, Pharmacy: [id number] Start Date: 07/06/22 Status: Ordered Mental Status 08/17/23 Barriers to Learning one year None evide nt Mandatory Health Literacy Documentation Yes Health Literacy Communication Barriers N ever Primary Language Maldivian Problem List Condition Confirmation Course Effective Dates [...] Diagnosis Diagnosis Type Effective Dates Health Status Cl inical Service Informant Left knee DJD Discharge Diagnosis 08/17/23 Procedures Procedure Date Related Diagnosis Body Site [...] Most recent to oldest [Reference Range]: 1 Temperature [36.5-37.9 DegC] 36.4 DegC *LOW* (08/17/23 7:51 AM) Heart Rate 70 bpm (08/17/23 7:51 AM) Blood Pressure 130/78mmHg (08/17/23 7:51 AM) Cuff Pulse Pressure 52 mmHg (08/17/23 7:51 AM) Social History Social History Type Response Tobacco Former smoker, Smoke less tobacco use: Former smokeless tobacco user, quit more than 1 year ago. Cigarettes Smoking Status Never smoked cigaret conrado Sex History and physical note * BEKAH Rangel, Anni: PERFORM Event Display: . Authored Date: [id number] Primary Care Provider BEKAH Lilly, Katarina Allen Referring Provider MD Stef, Jimmy Mendiola Chief Complaint L knee pre op History of Present Illness Karina is a 61-year-old female here today for preoperative history and physical prior to undergoinga left total knee arthroplasty with Dr. Finch. She has had about 10 cortisone injections as well as DECKER injections. Patient has had severe pain in her left knee. She has had a partial right knee arthroplasty w U and a history of neuropathy. Her left knee pain is located on the medial side that she describes as burning. Patient's pain radiates to the back of her knee and keeps her up at night. She takes Tramadol occasionally as well as IcyHot and Ibuprofen. Patient has significant swellingespecially after activity. She had a meniscus surgery done on her left knee about 3 years ago. Patient has not recently had a cortisone injection. She has no history of blood clotting, MRSA, allergy to latex or rubber gloves and is not currently on any blood thinners. [1] Review of Systems DeniesRecent illnesses, colds/flu, pneumonia, COVID or COVID exposures; DeniesFevers, chills, malaise; DeniesChest pain, heart palpitations; DeniesShortness of breath, cough; DeniesHeadacheor blurry vision; DeniesAbdominal pain, nausea, vomiting, diarrhea, or urinary symptoms Physical Exam Vitals & Measurements T:36.4C HR:70(Monitored) BP:130/78 SpO2:97% General: Pt is well nourished, seated on the exam table AA&O, in NAD, calm and cooperative during exam HENT: Nontraumatic, no gross deformity, hearing and vision grossly in-tact, PERRL Heart: +S1, +S2, RRR, no murmurs appreciated Lungs: CTABL, no wheezing appreciated Focusing on the patient'sleft lower extremity: Sensation intact to light touch L3 to S1 dermatomes. ROM: 2 to 110 + Medial > lateraljoint line tenderness + Tenderness over lateral and medial facet of patella Ligament exam: -Posterior drawer Stable to Varus and Valgus stress at 0 and 30. Well healed arthroscopic portal incisions [2] Diagnostic Results X-ray imaginviews and a long [facility] and personally interpreted by Dr Finch show subchondral cysts, bone spurs, narrowed joint spaces,andtricompartmental osteophyte formation. Slight patellar baja. Insall Salvati ratio is0.8. [3] Patient obtained sizing [facility] knee x-rays today. Again noted is moderate to severetricompartmental osteoarthritismost severe in the medial patellofemoral joint. Assessment/Plan 1.Left knee DJD The risks and benefits of surgery as well as the post operative course was explained and discussed with the patient. Written consent obtained. The patient's past medical history, surgeries, social history, medication list, allergies and PDMP were reviewed and confirmed with the patient. Patientwill needmedical clearancewhpro[facility] scheduled for 08/19.Preoperative orders were placed. We discussed postoperative pain medications includingoxycodone, tylenol, diclofenac,as well as icing and elevating to control pain. DVT prophylaxis -ASA 81mg BID x 6 weeks and DAVID stockings x 2 weeks. Additional medications -stool softener as needed to prevent constipation while on narcotics. The patient has been scheduled for post operative appointments, including any PT or HH services, per surgeon's preference. patient would like to do HH x 4 weeks then begin OP PT with us. She has walkerand raised toilet seat. The patient was given a preoperative booklet and we reviewed the most pertinent things leading up to the surgery and the day of surgery; including any assisted devices pt may need, when/who to call for the surgery time, where to arrive the day of surgery, NPO after midnight,medications to hold, prepping the skin with CHG to prevent infection etc. All of their questions and concerns were answered today. They were instructed to call our office if they have any further questions or concerns. Problem List/Past Medical History Ongoing Adjustment disorder with depressed mood Colon polyps COPD with emphysema GERD without esophagitis History of partial knee replacement HTN, goal below 140/90 Hyperlipidemia with target LDL less than 130 Left knee DJD Malignant melanoma of right upper extremity Procedure/Surgical History Chest X-ray (11/17/2022)Ultrasound scan of thyroid (11/16/2022)Diagnostic mammogram (06/02/2022)Wrist X-ray (05/02/2021)Knee X-ray (01/23/2018)Mammogram (01/17/2017)Ultrasound Angie ast Left (08/01/2015)Tubal ligation Medications albuterol(Albuterol (Eqv-ProAir HFA) 90 mcg/inh inhalation aerosol), 2 puff, inhaled, qid, PRN, 3 refills amoxicillin(amoxicillin 500 mg oral capsule), 2000 mg= 4 cap, PO, As indicated, 3 refills atorvastatin(atorvastatin 40 mg oral tablet), 40 mg= 1 tab, PO, Daily, 3 refills benzonatate(Tessalon Perles 100 mg oral capsule), 100 mg= 1 cap, PO, q8h buPROPion(buPROPion 150 mg/24 hours (XL) oral tablet, extended release), See Instructions, 5 refills hydroCHLOROthiazide-triamterene(hydroCHLOROthiazide-triamterene 25 mg-37.5 mg oral tablet), 1 tab, PO, Daily, 3 refills losartan(losartan 25 mg oral tablet), See Instructions, 5 refills methylPREDNISolone(Medrol Dosepak 4 mg oral tablet), See Instructions metoprolol(Metoprolol Tartrate 50 mg oral tablet), See Instructions, 3 refills nitrofurantoin(nitrofurantoin macrocrystals-monohydrate 100 mg oral capsule), 100 mg= 1 cap, PO, bid pantoprazole(pantoprazole 40 mg oral delayed release tablet), 40 mg= 1 tab, PO, Daily, 5 refills traMADol(traMADol 50 mg oral tablet), 50 mg= 1 tab, PO, q4h, PRN triamcinolone topical(triamcinolone 0.1% topical cream), 1 appl, topical, tid Allergies No Known Medication Allergies Social History Smoking Status Never smoked cigarettes Alcohol - Low Risk Employment/School - Low Risk Exercise - Regular exercise Nutrition/Health - Medium Risk Substance Abuse - Denies Substance Abuse Tobacco - Medium Risk Use:Former smoker Smokeless tobacco use:Former smokeless tobacco user, quit more than 1 year ago Type:Cigarettes Family History Breast cancer: Mother and Maternal Aunt. COPD: Mother. Hypertension: Mother. Osteoporosis: Mother and MGM. Health Status Family Member(s) Immunizations Vaccine Date Status diphtheria/tetanus/pertuss, acel (DTaP) 02/11/2023 Recorded Comments : Boostrix Recommendations Health Maintenance Pending(in the next year) OverDue Adult Influenza Vaccine due04/09/23and every 1year Due Adult COVID-19 Vaccination due08/17/23Unknown Frequency Cervical Cancer Screening due08/17/23Unknown Frequency Colorectal Cancer Screening due08/17/23Unknown Frequency Hepatitis C Screening due08/17/23One-time only Pneumococcal Vaccine Adults and Adolescents with Chronic Illness due08/17/23One-time only Shingles Vaccine due08/17/23One-time only Due In Future Body Mass Index not due until07/25/24and every 1year Satisfied(in the past 1 year) Satisfied Body Mass Index on07/26/23.Satisfied by MARA Selby Natasha [1]Jimmy Finch; Mili Blandon 07/26/2023 07:46 EDT [2]Jimmy Finch; Mili Blandon 07/26/2023 07:46 EDT [3]Jimmy Finch; Mili Blandon 07/26/2023 07:46 EDT Electronic Signature on File Electronically Reviewed/Signed by: Anni Rangel PA-C Author Signature Dt/Tm:08/17/2023 01:52 PM Physician Surg Rn, Dept. of Orthopaedics and Sports Medicine [facility] Medical [facility] - [address], [address] [place] [id number] Electronically Reviewed/Signed by: Jimmy Finch MD Cosigner Signature Dt/Tm: 08/18/2023 08:41AM Division of Sports Medicine [place] Patient Care team information Care Team Personnel Name: BEKAH Lilly, Katarina Allen Position: Physician Surg Rn - Family Med Member Role: Primary Care Provider Address: Address: [address] [place] [id number] Name: LYDIA Rose, Tiff Position: Supervisor [employer]ellant Charge Loading Member Role: Supervisor [employer]ellant [employer] Loading Address: Address: [facility] [address] [place] [address] Care Team Related Persons Name: ALEXIS FLYNN Address: home [address] [place], [place] [address] [phone]
== END 2023-08-26 10:58 | disposition home health service (06) ==
LOC: ASU 07:27 → 3E 07:27